=== PATIENT | male | born 1970 | race Native Hawaiian/Other Pacific Islander ===

== ENCOUNTER 2020-05-03 08:07 | Emergency (ER) | payer MEDICARE, SELFPAY ==
[2020-05-03 08:14] VITALS: BP 160/106; PULSE 87; RESP 18; TEMP 36.3; O2SAT 97; BMI 25.8
--- NOTE | 2020-05-03 08:26 | XRR_ITS ---
PROCEDURE INFORMATION: Exam: XR Right Elbow Exam date and time: 05/03/2020 8:27 AM Age: 50 years old Clinical indication: Pain; Elbow; Right; Additional info: Elbow pain TECHNIQUE: Imaging protocol: XR Right elbow. Views: 3 or more views. COMPARISON: No relevant prior studies available. FINDINGS: Bones/joints: No acute osseous pathology. Anatomic alignment. Soft tissues: Unremarkable soft tissues. XR/XR elbow RT min 3V* [id number] IMPRESSION: No acute osseous pathology.
--- NOTE | 2020-05-03 08:37 | ED_ITS ---
HPI - Extremity Problem General: Chief complaint: Extremity Problem,Nontraumatic Stated complaint: r elbow injury Time Seen by Provider: 05/03/20 08:23 Source: patient Mode of arrival: ambulatory Limitations: no limitations History of Present Illness: HPI Narrative: No acute injury, last injury to elbow was 20+ years prior. Patient is afraid his bone has split . No known repetitive use of elbow. MD Complaint: extremity pain Pain Consistency: intermittent Location: right Severity scale (1-10): 6 Quality: aching Radiation: none Relieving factors: nothing Exacerbating factors: nothing Associated symptoms: Reports arthralgias Review of Systems General: Reports: 10 or more systems reviewed and unremarkable except in HPI and below Musc: Reports: extremity pain and joint pain; Denies: extremity swelling, joint swelling or limited range of motion Physical Exam Const: COMMON NORMALS: no acute distress, patient oriented x3 and alert GENERAL APPEARANCE: cooperative and well kempt HENMT: COMMON NORMALS: normocephalic, atraumatic, external ears normal and TM's normal bilaterally HEAD & SCALP: normocephalic and atraumatic EXTERNAL EAR: Yes external ears normal TYMPANIC MEMBRANE: TM's normal bilaterally MOUTH: Normal oral and palatal mucosa present Eye: COMMON NORMALS: Equal, round and reactive pupils present GENERAL EYE: appearance normal, both eyes and all related structures PUPIL: Yes Equal, round and reactive pupils present and Yes Pupil accommodation reflex normal Neck/C-Spine: COMMON NORMALS: full ROM, no lymphadenopathy, supple, no JVD, Thyroid normal and No carotid bruits GENERAL: Yes trachea midline THYROID: Thyroid normal, no masses and nontender Lymph: LYMPHATIC: no lymphadenopathy noted Chest: CHEST: Yes Symmetrical chest wall rise Resp: COMMON NORMALS: normal respiratory effort and clear to auscultation bilaterally EFFORT & INSPECTION: Yes able to speak in complete sentences AUSCULTATION: clear to auscultation bilaterally Cardio: COMMON NORMALS: no JVD, regular rhythm and No murmurs present (Cardio) PALPATION: normal PMI RHYTHM: regular rhythm GI: COMMON NORMALS: non-tender, no masses and no bruits INSPECTION: Yes normal to inspection, No scar and No striae AUSCULTATION: Yes normoactive bowel sounds PALPATION: No Tenderness to palpation present (GI), No Guarding due to palpation present (GI), No Rigid due to palpation, No Hernia present and No Rebound tenderness present PERCUSSION: normal to percussion : COMMON NORMALS: Yes no CVA tenderness BLADDER/KIDNEY EXAM: Yes no CVA tenderness Back/Pelvis: COMMON NORMALS: no CVA tenderness GENERAL BACK: No swelling and No tenderness THORACIC SPINE/UPPER BACK: No pain with ROM Extremity: COMMON NORMALS: normal to inspection, no clubbing, cyanosis or edema and no calf tenderness Neuro: COMMON NORMALS: patient oriented x3 and moves all extremities SENSORIUM/ORIENTATION: Yes alert CRANIAL NERVES: Yes CN normal except as noted GAIT: Yes Normal gait present MOTOR EXAM: 5/5 motor strength present throughout Psych: COMMON NORMALS: mental status grossly normal APPEARANCE: Yes well kempt Skin: COMMON NORMALS: turgor normal NARRATIVE SKIN EXAM: Normal coloration of skin GENERAL SKIN EXAM: turgor normal LESIONS: no lesions RASHES: no rashes TRAUMA: no lacerations or abrasions Course ED course: Full ROM, no obvious injuries. Takes ibuprofen for pain daily. Vital Signs: Vital signs: Vital Signs Temperature 97.3 F L 05/03/20 08:14 Pulse Rate 87 05/03/20 08:14 Respiratory Rate 18 05/03/20 08:14 Blood Pressure 160/106 05/03/20 08:14 Pulse Oximetry 97 05/03/20 08:14 MDM - Extremity (Nontraumatic) Imaging Data^: Xray Ortho: Attestation: I personally reviewed and interpreted this imaging study as follows: My impression: No acute injury, no fracture present. Personally viewed by myself and . Discharge Plan Discharge Patient Disposition: Home Clinical Impression: Arthralgia of elbow, right Condition: Stable Prescriptions: New Celebrex 200 mg capsule 200 mg PO BID 5 Days Qty: 10 RF: 0 Discharge Orders: Discharge Order (Routine); Ordered 05/03/20 Ordered By: Ayse Torres Referrals: Ofelia Forrester DO [Physician] - Discharge Diet: Usual diet Discharge Activity: Resume usual activity Patient Instructions: Arthralgia (ED) Coding Level of Care Code ED [employer] Fwd Exam Comprehensive
[2020-05-03 09:18] VITALS: BP 123/89; PULSE 82; RESP 18; O2SAT 99
== END 2020-05-03 09:18 | disposition home or self-care (01) ==
PROVIDERS: Emergency Provider Nurse Practitioner Family
DX: M25.521 Pain in right elbow (principal)
CPT/HCPCS: 12345; 73080; 99281; 99282

== ENCOUNTER → 2020-06-02 11:31 | Outpatient (BNVA) | payer MEDICARE, SELFPAY | PROVIDERS: Visit Provider Family Medicine | DX: D58.2 Other hemoglobinopathies (principal); I10 Essential (primary) hypertension; R39.12 Poor urinary stream; Z12.5 Encounter for screening for malignant neoplasm of prostate | CPT/HCPCS: 80053; 85025; G0103 ==

== ENCOUNTER → 2020-06-03 11:09 | Outpatient (BNVA) | payer MEDICARE, SELFPAY | PROVIDERS: Visit Provider Family Medicine | DX: D58.2 Other hemoglobinopathies (principal) | CPT/HCPCS: 82607 ==

== ENCOUNTER → 2020-07-03 09:09 | Outpatient (BNVA) | payer MEDICARE, SELFPAY | PROVIDERS: Visit Provider Family Medicine | DX: I10 Essential (primary) hypertension (principal); R39.12 Poor urinary stream; M25.521 Pain in right elbow; F17.229 Nicotine dependence, chewing tobacco, with unspecified nicotine-induced disorders | CPT/HCPCS: 80048; 80061; 82043 ==

== ENCOUNTER → 2021-11-24 11:45 | Outpatient (BNVA) | payer MEDICARE, SELFPAY | PROVIDERS: PCP Family Medicine; Visit Provider Family Medicine | DX: I10 Essential (primary) hypertension (principal); R35.1 Nocturia | CPT/HCPCS: 80053; 80061; 82043; 84153; 85025 ==

== ENCOUNTER → 2023-09-27 14:56 | Outpatient (BNVA) | payer MEDICARE, SELFPAY | PROVIDERS: PCP Family Medicine; Visit Provider Emergency Medicine | DX: M25.532 Pain in left wrist (principal); S52.509A Unspecified fracture of the lower end of unspecified radius, initial encounter for closed fracture; W19.XXXA Unspecified fall, initial encounter | CPT/HCPCS: 73110 ==

== ENCOUNTER → 2024-02-15 10:41 | Outpatient (BNVA) | payer MEDICARE, SELFPAY | PROVIDERS: PCP Family Medicine | DX: M25.532 Pain in left wrist; I10 Essential (primary) hypertension; M19.031 Primary osteoarthritis, right wrist | CPT/HCPCS: 73110; 80053; 80061; 85025 ==

== ENCOUNTER → 2025-03-15 09:59 | Outpatient (BNVA) | payer MEDICARE, SELFPAY | DX: I10 Essential (primary) hypertension (principal); M19.90 Unspecified osteoarthritis, unspecified site; M25.532 Pain in left wrist; M25.561 Pain in right knee | CPT/HCPCS: 73110; 73562; 80053; 80061; 85025; 85651; 86140 ==